=== PATIENT | male | born 1965 | race Caucasian/White ===

== ENCOUNTER 2020-02-10 16:43 | Emergency (ER) | payer OTHER, SELFPAY ==
[2020-02-10 16:44] VITALS: BP 157/113; PULSE 86; RESP 17; TEMP 36.7; O2SAT 96; BMI 30.9
--- NOTE | 2020-02-10 17:15 | RAD_ITS ---
STUDY: X-RAY CHEST REASON FOR EXAM: Male, 54 years old. PT REPORTS BEING SENT [facility] FROM [facility] FOR SLIGHT WHEEZING NOT BEING CLEARED BY COUGH. PT ALSO C/O ALLERGY SYMPTOMS TECHNIQUE: Single frontal view of the chest. COMPARISON: None. FINDINGS: Cardiac silhouette unremarkable. Pulmonary vascularity unremarkable. Aorta unremarkable. No focal airspace opacities. No pleural effusions. Nodular densities at the bilateral lung bases most likely represent nipple shadows. Upper abdomen unremarkable. Osseous structures intact. No pneumothorax. RAD/Chest 1 View (Portable) IMPRESSION: No acute cardiopulmonary findings Nodular densities at the bilateral lung bases most likely represent nipple shadows. Consider repeat chest radiograph with nipple markers. Electronically Signed: Dejuan Partida, at 18:23 EDT Tel , Service support ,
--- NOTE | 2020-02-10 17:16 | ED.DCSUM_ITS ---
- ER Visit Summary Date of Service: 02/10/20 Chief Complaint: Cough History of Present Illness: The patient is a 54 M who presents with cough and wheezing that [facility]. Patient states he was seen there last week for sinus congestion and allergies. Patient states he was put on nasal spray and Claritin. Patient states he followed up there again today and they noted some wheezing in his left upper chest. Patient states he was then referred to the emergency department for chest x-ray. Patient denies any fevers or chills. Patient admits to a cough in the morning. Patient states he has been coughing up some white sputum. Patient denies any chest pain. Patient denies any shortness of breath. Physical Examination: Vital signs are stable. Patient is afebrile. Patient is in no acute distress. Oral mucosa is pink and moist. Neck is supple. Trachea is midline. There is no JVD noted. Heart was regular rate and rhythm. Lungs are clear and equal bilaterally. Abdomen is soft. Bowel sounds are normal. There is no tenderness. There is no rebound or guarding noted. Skin is warm dry. Cranial nerves II through XII are intact. There are no focal motor or sensory deficits noted. Extremities are intact. There is no calf tenderness or edema. Test Results: Portable chest x-ray was obtained. There is no acute cardiopulmonary process. This was interpreted by the radiologist and reviewed by myself. Emergency Department Course and Treatment: Patient is feeling better on reevaluation. Patient was instructed to follow-up with his primary care physician in 5 to 7 days. Patient understood and was agreeable with the plan. All questions were answered. Disposition: Discharge home Impression: Upper respiratory infection This note was generated with [employer] dictation software. It may contain incorrect words, spelling, and punctuation that were not noted in review of the chart prior to signing ED Disposition - Plan for ED Patient: Disposition: Home or Assisted Living Diagnosis: Upper respiratory infection Instructions: ED URI Viral Referrals: NOT,DEFINED [NON-STAFF] - 5-7 Days
[2020-02-10 17:24] VITALS: O2SAT 98
[2020-02-10 19:39] VITALS: BP 148/81; PULSE 78; RESP 16; O2SAT 98
== END 2020-02-10 19:40 | disposition home or self-care (01) ==
PROVIDERS: Emergency Provider Emergency Medicine
DX: J06.9 Acute upper respiratory infection, unspecified (principal)
CPT/HCPCS: 71045; 99282

== ENCOUNTER → 2020-09-01 15:31 | Outpatient (CLI) | payer OTHER, SELFPAY ==
[2020-09-01 16:50] LABS: Absolute Lymphocyte Count 2.67 X10^3/uL (0.83-4.51); Absolute Neutrophil Count 4.5 X10^3/uL (2.0-7.7); Basophil# 0.07 X10^3/uL; Basophil% 0.9 % (0-1); Eosinophil# 0.41 X10^3/uL; Hematocrit 47.3 % (40-54); Hemoglobin 15.9 g/dL (13.0-16.5); Lymphocyte # 2.67 X10^3/ul (4.0); Lymphocyte % 32.7 % (19-41); Mean Corp Hgb Conc 33.6 g/dL (32-36); Mean Corpuscular Hgb 31.3 pg (27.0-32.0); Mean Corpuscular Volume 93.1 fL (80-94); Mean Platelet Vol. 10.2 fl (6.2-12.0); Monocyte# 0.53 X10^3/uL; Monocyte% 6.5 % (0-10); NRBC Flagged by Analyzer 0 % (0-5); Neutrophil # 4.47 X10^3/uL (2.7-7.7); Neutrophil % 54.7 % (47-70); Platelet Count 211 K/mm3 (150-450); RBC Distribution Width SD 41.5 fl (35.1-43.9); Red Blood Count 5.08 M/mm3 (4.6-6.2); White Blood Count 8.2 K/mm3 (4.4-11.0)
[2020-09-01 17:07] LABS: Vitamin B12 504 pg/mL (211-911)
[2020-09-01 17:15] LABS: ALB/GLOB Ratio 1.1 RATIO (0.9-2.4); AST(SGOT) 15 U/L (15-37); Alanine Aminotransfer ALT/SGPT 29 U/L (16-61); Alkaline Phosphatase 73 U/L (45-117); Anion Gap 6 (5-15); BUN 14 mg/dL (7-18); BUN/Creat Ratio 12.6 RATIO (10-20); Calcium,Total 9.5 mg/dL (8.5-10.1); Chloride 106 mmol/L (98-107); Creatinine, Serum 1.11 mg/dL (0.70-1.30); EST Glomerular Filtration Rate 73 mL/min (>60); Est Glom Filt Rate - Afr Amer 88 mL/min (>60); Globulin 3.5 g/dL (2.2-4.2); Glucose 96 mg/dL (74-106); Potassium 4.5 mmol/L (3.5-5.1); Protein, Total 7.5 g/dL (6.4-8.2); Sodium Level 139 mmol/L (136-145); T4 Free Direct 1.03 ng/dL (0.76-1.46); Thyroid Stim Hormone (TSH) 2.15 uIU/mL (0.358-3.74)
== END ==
PROVIDERS: PCP Internal Medicine; Referring Provider Internal Medicine; Visit Provider Internal Medicine
DX: F41.9 Anxiety disorder, unspecified (principal); F32.9 Major depressive disorder, single episode, unspecified
CPT/HCPCS: 36415; 80053; 82607; 84439; 84443; 85025

== ENCOUNTER → 2020-09-19 06:20 | Outpatient (CLI) | payer OTHER, SELFPAY ==
--- NOTE | 2020-09-19 06:22 | MRI_ITS ---
STUDY: MRI BRAIN WITH AND WITHOUT CONTRAST REASON FOR EXAM: Male, 55 years old. memory impairment , post concussion syndrome TECHNIQUE: Standardized multiplanar fat and water weighted pulse sequences were obtained. 18CC IV DOTAREM was administered for the contrast portion of the examination. COMPARISON: None. FINDINGS: Normal size of the ventricles and extra-axial spaces for the patient''s age. Normal white matter tracts of the supratentorial brain. Normal bilateral basal ganglia. Normal thalami. There is no extra-axial fluid accumulation. Normal flow voids within the major intracranial circulation suggesting patency by spin echo criteria. Normal venous enhancement. There is no enhancing intra-axial or extra-axial abnormality. Normal sella turcica, pituitary gland, infundibular stalk, optic chiasm and hypothalamus. Normal tectal plate and pineal gland. Normal midbrain, nita and medulla. Normal cerebellum. Normal basal cisterns. There is mild paranasal sinus disease. MRI/Brain W/WO Contrast IMPRESSION: Unremarkable unenhanced and enhanced MRI of the brain. Mild paranasal sinus disease. Electronically Signed: Tommy Sousa MD at 14:29 EST Tel , Service support ,
== END ==
PROVIDERS: PCP Internal Medicine; Referring Provider Internal Medicine; Visit Provider Internal Medicine
DX: F07.81 Postconcussional syndrome (principal); R41.3 Other amnesia
CPT/HCPCS: 70553; A9575